=== PATIENT | male | born 1955 | race Caucasian/White ===

== ENCOUNTER 2024-11-16 23:12 | Inpatient (IN) | payer MEDICARE, OTHER ==
[~2024-11-16] VITALS: Ht 177.8 cm; Wt 68.0 kg
[~2024-11-16 23:12] MED LIST: POVI1MED TP; ZINC220C6 PO
[2024-11-17 01:14] LABS: APPEARANCE,URINE CLEAR (CLEAR); BILIRUBIN,URINE NEGATIVE (NEGATIVE); BLOOD, URINE 1+ Ery/uL (NEGATIVE); COLOR,URINE YELLOW (YELLOW); KETONES,URINE NEGATIVE (NEGATIVE); LEUKOCYTE ESTERASE ,URINE NEGATIVE (NEGATIVE); NITRITE, URINE NEGATIVE (NEGATIVE); PROTEIN,URINE 1+ mg/dl (NEGATIVE); UGLUCOSE NEGATIVE (NEGATIVE); UROBILINOGEN,URINE 0.2 EU/dL (0.2)
[2024-11-17 01:32] LABS: ADD URINE CULTURE NO; BACTERIA,URINE Few /HPF (None Seen); SQUAMOUS EPITHELIAL CELL,UR Moderate /HPF (None Seen)
[2024-11-17 02:29] LABS: BASOPHILS # (AUTO) 0.1 K/uL (0.0-0.2); BASOPHILS % (AUTO) 0.5 % (0.0-2.0); EOSINOPHILS # (AUTO) 0.4 K/uL (0.0-0.7); EOSINOPHILS % (AUTO) 1.4 % (0.0-6.0); HEMATOCRIT 27 % (39-51); HEMOGLOBIN 8.8 g/dL (13.5-17.5); LYMPHOCYTES # (AUTO) 1.8 K/uL (0.8-4.8); LYMPHOCYTES % (AUTO) 6.8 % (20.0-44.0); MEAN CORPUSCULAR HEMOGLOBIN 26 PG (26.0-33.0); MEAN CORPUSCULAR HGB CONC 33 g/dl (31.0-36.0); MEAN CORPUSCULAR VOLUME 80 fL (80-96); MONOCYTES # (AUTO) 1.6 K/uL (0.1-1.30); MONOCYTES % (AUTO) 5.9 % (2.0-12.0); NEUTROPHILS # (AUTO) 22.5 K/uL (1.8-8.9); NEUTROPHILS % (AUTO) 85.4 % (43.0-81.0); PLATELET COUNT (AUTO) 398 K/uL (150-450); RED BLOOD CELL COUNT(AUTO) 3.37 MIL/uL (4.5-6.0); RED CELL DISTRIBUTION WIDTH 17.2 % (11.5-15.0); WHITE BLOOD COUNT (AUTO) 26.4 K/uL (4.3-11.0)
[2024-11-17 02:51] LABS: INR 1.24 (0.91-1.10); PARTIAL THROMBOPLASTIN TIME 34.8 SEC (24.3-34.3)
[2024-11-17 03:05] LABS: ALBUMIN 1.9 g/dL (3.4-5.0); BILIRUBIN,DIRECT 0.1 mg/dL (0.0-0.2); BILIRUBIN,TOTAL 0.3 mg/dL (0.2-1.0); CALCIUM, SERUM 9.1 mg/dL (8.5-10.1); CREATININE 0.8 mg/dL (0.6-1.3); POTASSIUM 3.6 mmol/L (3.5-5.1); TOTAL PROTEIN, SERUM 7.3 g/dL (6.4-8.2)
[2024-11-17] MEDS ORDERED: ONDANSETRON HCL/PF 4 MG/2 ML VIAL IVP PRN (04:00)
[2024-11-17] MEDS ORDERED: Z GUARD REMEDY 4 OZ OINT TP PRN (04:00)
[2024-11-17] MEDS ORDERED: METRONIDAZOLE 500MG/ NS 100ML 500 MG in PREMIX 1 EA IV SCH (04:00)
[2024-11-17] MEDS ORDERED: MAG HYDROX/AL HYDROX/SIMETH 30 ML UDC PO PRN (04:00)
[2024-11-17] MEDS ORDERED: MAGNESIUM HYDROXIDE 30 ML UDC PO PRN ×2 (04:00→13:30)
[2024-11-17] MEDS ORDERED: CEFEPIME 1 GM in IV D5W 50 ML IV SCH (04:00)
[2024-11-17] MEDS ORDERED: ACETAMINOPHEN 325 MG TABLET PO PRN (04:00)
[2024-11-17] MEDS ORDERED: ZOLPIDEM TARTRATE 5 MG TABLET PO PRN (04:00)
[2024-11-17 05:30] VITALS: BP 142/72; TEMP 97.9; O2SAT 98
[2024-11-17] MEDS: VANCOMYCIN 1 GM /D5W 250 ML PB IV ONE (06:13)
[2024-11-17] MEDS: VANCOMYCIN 1 GM in IV NS 0.9% 250 ML IV ONE (06:20)
[2024-11-17] MEDS: METRONIDAZOLE 500MG/ NS 100ML 500 MG in PREMIX 1 EA IV SCH (07:52)
[2024-11-17 08:00] VITALS: BP 149/87; TEMP 97.9; O2SAT 100
[2024-11-17] MEDS: CEFEPIME 2 GM in IV D5W 100 ML IV SCH (08:45)
[2024-11-17] MEDS ORDERED: ALLO100T PO (09:59)
[2024-11-17] MEDS ORDERED: L. A1TAB10 PO (09:59)
[2024-11-17] MEDS ORDERED: FOLI0.8T3 PO (09:59)
[2024-11-17] MEDS ORDERED: IPRA3AMP23 IH (09:59)
[2024-11-17] MEDS ORDERED: ATOR10TA PO (09:59)
[2024-11-17] MEDS ORDERED: AMIN30LI25 PO (09:59)
[2024-11-17] MEDS ORDERED: NA P133E RC (09:59)
[2024-11-17] MEDS ORDERED: BISA10SU11 RC (09:59)
[2024-11-17] MEDS ORDERED: MIRT-90 PO (09:59)
[2024-11-17] MEDS ORDERED: METO50TA16 PO (09:59)
[2024-11-17] MEDS ORDERED: MULT-213 PO (09:59)
[2024-11-17] MEDS ORDERED: PANT40TA49 PO (09:59)
[2024-11-17] MEDS ORDERED: RIFA550T PO (09:59)
[2024-11-17] MEDS ORDERED: LOSA50TA39 PO (09:59)
[2024-11-17] MEDS ORDERED: AMOX1TAB15 PO (09:59)
[2024-11-17] MEDS ORDERED: ASCO500T10 PO (09:59)
[2024-11-17] MEDS ORDERED: LACT10SO29 PO (09:59)
[2024-11-17] MEDS ORDERED: ZINC56.713 TP (09:59)
[2024-11-17] MEDS ORDERED: ACET-73 PO (09:59)
[2024-11-17] MEDS ORDERED: HEPA50008 SQ (09:59)
[2024-11-17] MEDS ORDERED: LENV8CAP PO (09:59)
[2024-11-17] MEDS ORDERED: ISOS30TA86 PO (09:59)
[2024-11-17] MEDS ORDERED: LEVE500S9 PO (09:59)
[2024-11-17] MEDS ORDERED: PHEN32.46 PO (09:59)
[2024-11-17] MEDS ORDERED: AMLO-213 PO (09:59)
[2024-11-17] MEDS ORDERED: ASPI-1420 PO (09:59)
[2024-11-17] MEDS ORDERED: ACET325T53 PO (09:59)
[2024-11-17] MEDS ORDERED: MEGE20TA3 PO (09:59)
[2024-11-17] MEDS ORDERED: MAGN400O6 PO (09:59)
[2024-11-17] MEDS ORDERED: NA PHOS,M-B/NA PHOS,DI-BA 1 EA ENEMA RC PRN (13:30)
[2024-11-17] MEDS ORDERED: ZINC OXIDE 56.7 GM TUBE TP PRN (13:30)
[2024-11-17] MEDS ORDERED: BISACODYL SUPP (10 MG) 10 MG/SUPP.RECT SUPP.RECT RC PRN (13:30)
[2024-11-17] MEDS ORDERED: LENVATINIB XX SCH (13:30)
[2024-11-17] MEDS ORDERED: ALBUTEROL FS 2.5 MG/3 ML VIAL.NEB NEB PRN (13:30)
[2024-11-17 16:00] VITALS: BP 150/87; TEMP 99.4; O2SAT 92
[2024-11-17] MEDS: LACTULOSE 10 G/15 ML UDC (PYXIS) PO SCH (16:14)
[2024-11-17] MEDS: ACIDOPHILUS/BULGARICUS 1 EACH TAB.CHEW PO SCH (16:14)
[2024-11-17] MEDS: VANCOMYCIN 1 GM in IV D5W 250ml IV SCH (18:00)
[2024-11-17 20:00] VITALS: BP 139/83; TEMP 97.7; O2SAT 100
[2024-11-17] MEDS: HEPARIN SODIUM, PORCINE 5000 UNITS/1 ML VIAL SQ SCH (20:40)
[2024-11-17] MEDS: PHENOBARBITAL 30 MG TABLET PO SCH (20:41)
[2024-11-17] MEDS: RIFAXIMIN 550 MG TABLET PO SCH (20:41)
[2024-11-17] MEDS: LEVETIRACETAM (250 MG) 250 MG TABLET PO SCH (20:41)
[2024-11-17] MEDS: METOPROLOL TARTRATE 50 MG TABLET PO SCH (20:46)
[2024-11-17] MEDS: MIRTAZAPINE 15 MG TABLET PO SCH (21:48)
[2024-11-17] MEDS: ATORVASTATIN 10 MG TABLET PO SCH (21:48)
[2024-11-18] MEDS: IV NS 0.9% 1,000 ML IV PRN (05:47)
[2024-11-18 08:00] VITALS: BP 148/87; TEMP 97.5; O2SAT 100
[2024-11-18] MEDS: ALLOPURINOL 100 MG TABLET PO SCH (08:28)
[2024-11-18] MEDS: MULTIVIT W/MINERALS 1 TAB TABLET PO SCH (08:28)
[2024-11-18] MEDS: PANTOPRAZOLE 40 MG TABLET.DR PO SCH (08:28)
[2024-11-18] MEDS: ASCORBIC ACID 500 MG TABLET PO SCH (08:29)
[2024-11-18] MEDS: ZINC SULFATE 220 MG CAPSULE PO SCH (08:29)
[2024-11-18] MEDS: MEGESTROL ACETATE 40 MG TABLET PO SCH (08:29)
[2024-11-18] MEDS: FOLIC ACID 1 MG TABLET PO SCH (08:29)
[2024-11-18] MEDS: ASPIRIN EC 81 MG TABLET.DR PO SCH (08:29)
[2024-11-18] MEDS: AMLODIPINE BESYLATE 10 MG TABLET PO SCH (08:30)
[2024-11-18] MEDS: LOSARTAN POTASSIUM 50 MG TABLET PO SCH (08:31)
[2024-11-18] MEDS: ISOSORBIDE MONONITRATE (30MG) 30 MG TAB.SR.24H PO SCH (08:31)
[2024-11-18] MEDS: PROSOURCE / PROSTAT (PYXIS) 30 ML UDC PO SCH (08:32)
[2024-11-18 15:33] LABS: BASOPHILS # (AUTO) 0.1 K/uL (0.0-0.2); BASOPHILS % (AUTO) 0.4 % (0.0-2.0); EOSINOPHILS # (AUTO) 0.3 K/uL (0.0-0.7); EOSINOPHILS % (AUTO) 1.5 % (0.0-6.0); HEMATOCRIT 32 % (39-51); HEMOGLOBIN 10.4 g/dL (13.5-17.5); LYMPHOCYTES # (AUTO) 2.3 K/uL (0.8-4.8); LYMPHOCYTES % (AUTO) 9.8 % (20.0-44.0); MEAN CORPUSCULAR HEMOGLOBIN 26 PG (26.0-33.0); MEAN CORPUSCULAR HGB CONC 33 g/dl (31.0-36.0); MEAN CORPUSCULAR VOLUME 81 fL (80-96); MONOCYTES # (AUTO) 1.4 K/uL (0.1-1.30); NEUTROPHILS # (AUTO) 19.1 K/uL (1.8-8.9); NEUTROPHILS % (AUTO) 82.3 % (43.0-81.0); PLATELET COUNT (AUTO) 482 K/uL (150-450); RED BLOOD CELL COUNT(AUTO) 3.96 MIL/uL (4.5-6.0); RED CELL DISTRIBUTION WIDTH 17.4 % (11.5-15.0); WHITE BLOOD COUNT (AUTO) 23.2 K/uL (4.3-11.0)
[2024-11-18 15:59] LABS: ALBUMIN 2.2 g/dL (3.4-5.0); BILIRUBIN,TOTAL 0.3 mg/dL (0.2-1.0); CALCIUM, SERUM 9.3 mg/dL (8.5-10.1); CREATININE 0.9 mg/dL (0.6-1.3); MAGNESIUM 1.7 mg/dL (1.8-2.4); POTASSIUM 3.6 mmol/L (3.5-5.1); TOTAL PROTEIN, SERUM 8.3 g/dL (6.4-8.2)
[2024-11-18 16:00] VITALS: BP 114/73; TEMP 97.5; O2SAT 99
[2024-11-18 16:09] LABS: THYROID STIMULATING HORMONE 7.87 uIU/mL (0.358-3.74)
[2024-11-18 19:11] LABS: LYMPHOCYTES % (MANUAL) 15 % (16-48); MONOCYTES % (MANUAL) 5 % (0-11.0); NEUTROPHILS % (MANUAL) 80 (42-76)
[2024-11-18 19:12] LABS: ANISOCYTOSIS 1+; PLATELET ESTIMATE INCREASED; TARGET CELLS 1+
[2024-11-18 19:15] LABS: ERYTHROCYTE SEDIMENTATION RATE 113 MM/HR (0-20)
[2024-11-18 20:00] VITALS: BP 139/72; TEMP 97.3; O2SAT 100
[2024-11-19 02:24] VITALS: BP 139/72; TEMP 97.3; O2SAT 100
[2024-11-19 02:40] VITALS: BP 139/72; TEMP 97.3; O2SAT 100
[2024-11-19] MEDS: METRONIDAZOLE 500 MG TABLET PO SCH (07:14)
[2024-11-19] MEDS ORDERED: VITAMINS A AND D 56.7 GM TUBE TP PRN (09:30)
[2024-11-19] MEDS: VANCOMYCIN 750 MG in IV D5W 250 ML IV SCH (09:46)
[2024-11-19 15:38] LABS: BASOPHILS # (AUTO) 0.1 K/uL (0.0-0.2); BASOPHILS % (AUTO) 0.4 % (0.0-2.0); EOSINOPHILS # (AUTO) 0.3 K/uL (0.0-0.7); EOSINOPHILS % (AUTO) 1.3 % (0.0-6.0); HEMATOCRIT 28 % (39-51); LYMPHOCYTES % (AUTO) 8.5 % (20.0-44.0); MEAN CORPUSCULAR HEMOGLOBIN 26 PG (26.0-33.0); MEAN CORPUSCULAR HGB CONC 33 g/dl (31.0-36.0); MEAN CORPUSCULAR VOLUME 81 fL (80-96); MONOCYTES # (AUTO) 1.7 K/uL (0.1-1.30); MONOCYTES % (AUTO) 7.1 % (2.0-12.0); NEUTROPHILS # (AUTO) 19.8 K/uL (1.8-8.9); NEUTROPHILS % (AUTO) 82.7 % (43.0-81.0); PLATELET COUNT (AUTO) 445 K/uL (150-450); RED BLOOD CELL COUNT(AUTO) 3.43 MIL/uL (4.5-6.0); RED CELL DISTRIBUTION WIDTH 17.4 % (11.5-15.0)
[2024-11-19 16:36] LABS: CALCIUM, SERUM 9.1 mg/dL (8.5-10.1); CREATININE 1.2 mg/dL (0.6-1.3); POTASSIUM 3.5 mmol/L (3.5-5.1)
[2024-11-19 17:38] LABS: BAND % (MANUAL) 2 % (0.0-5.0); EOSINOPHILS % (MANUAL) 1 % (0-4); LYMPHOCYTES % (MANUAL) 9 % (16-48); MONOCYTES % (MANUAL) 3 % (0-11.0); NEUTROPHILS % (MANUAL) 85 (42-76); PLATELET ESTIMATE ADEQU
[2024-11-19 17:39] LABS: ANISOCYTOSIS 1+; TARGET CELLS 1+
[2024-11-19 17:40] LABS: ROULEAUX 1+
[2024-11-19 20:00] VITALS: BP 143/82; TEMP 98.2; O2SAT 99
[2024-11-20] VITALS (7 sets, daily range): BP systolic 126–158; BP diastolic 61–91; TEMP 97.5–98.2; O2SAT 96–100
[2024-11-20 09:08] LABS: FOLIC ACID 11.3 ng/mL (>3.0)
[2024-11-20 13:34] LABS: BASOPHILS # (AUTO) 0.1 K/uL (0.0-0.2); BASOPHILS % (AUTO) 0.6 % (0.0-2.0); EOSINOPHILS # (AUTO) 0.2 K/uL (0.0-0.7); EOSINOPHILS % (AUTO) 1.2 % (0.0-6.0); HEMATOCRIT 28 % (39-51); HEMOGLOBIN 8.9 g/dL (13.5-17.5); LYMPHOCYTES # (AUTO) 1.7 K/uL (0.8-4.8); LYMPHOCYTES % (AUTO) 8.8 % (20.0-44.0); MEAN CORPUSCULAR HEMOGLOBIN 26 PG (26.0-33.0); MEAN CORPUSCULAR HGB CONC 32 g/dl (31.0-36.0); MEAN CORPUSCULAR VOLUME 82 fL (80-96); MONOCYTES # (AUTO) 1.4 K/uL (0.1-1.30); MONOCYTES % (AUTO) 7.2 % (2.0-12.0); NEUTROPHILS # (AUTO) 15.7 K/uL (1.8-8.9); NEUTROPHILS % (AUTO) 82.2 % (43.0-81.0); PLATELET COUNT (AUTO) 372 K/uL (150-450); RED BLOOD CELL COUNT(AUTO) 3.37 MIL/uL (4.5-6.0); RED CELL DISTRIBUTION WIDTH 17.6 % (11.5-15.0); WHITE BLOOD COUNT (AUTO) 19.1 K/uL (4.3-11.0)
[2024-11-20 13:37] LABS: CALCIUM, SERUM 8.6 mg/dL (8.5-10.1); CREATININE 1.1 mg/dL (0.6-1.3); POTASSIUM 3.2 mmol/L (3.5-5.1)
[2024-11-20] MEDS: POTASSIUM CHLORIDE 20 MEQ POWDER PACKET PO SCH (18:09)
[2024-11-21 07:45] LABS: BASOPHILS # (AUTO) 0.1 K/uL (0.0-0.2); BASOPHILS % (AUTO) 0.3 % (0.0-2.0); EOSINOPHILS # (AUTO) 0.3 K/uL (0.0-0.7); EOSINOPHILS % (AUTO) 1.3 % (0.0-6.0); HEMATOCRIT 23 % (39-51); HEMOGLOBIN 7.8 g/dL (13.5-17.5); LYMPHOCYTES % (AUTO) 8.6 % (20.0-44.0); MEAN CORPUSCULAR HEMOGLOBIN 27 PG (26.0-33.0); MEAN CORPUSCULAR HGB CONC 33 g/dl (31.0-36.0); MEAN CORPUSCULAR VOLUME 81 fL (80-96); MONOCYTES # (AUTO) 1.7 K/uL (0.1-1.30); MONOCYTES % (AUTO) 7.3 % (2.0-12.0); NEUTROPHILS # (AUTO) 18.7 K/uL (1.8-8.9); NEUTROPHILS % (AUTO) 82.5 % (43.0-81.0); PLATELET COUNT (AUTO) 381 K/uL (150-450); RED BLOOD CELL COUNT(AUTO) 2.89 MIL/uL (4.5-6.0); WHITE BLOOD COUNT (AUTO) 22.7 K/uL (4.3-11.0)
[2024-11-21 08:00] VITALS: BP_SYST 118; BP_SYST 142; BP_DIAS 56; BP_DIAS 86; TEMP 97.7; TEMP 98.4; O2SAT 100; O2SAT 94
[2024-11-21 08:12] LABS: CALCIUM, SERUM 8.5 mg/dL (8.5-10.1); CREATININE 1.1 mg/dL (0.6-1.3); POTASSIUM 3.5 mmol/L (3.5-5.1)
[2024-11-21 09:34] VITALS: BP 142/86
[2024-11-21 10:00] LABS: LYMPHOCYTES % (MANUAL) 6 % (16-48); MONOCYTES % (MANUAL) 5 % (0-11.0); NEUTROPHILS % (MANUAL) 89 (42-76)
[2024-11-21 10:01] LABS: ANISOCYTOSIS 1+; PLATELET ESTIMATE ADEQUATE; TARGET CELLS 1+
== END 2024-11-21 17:14 | DRG 177 ==
LOC: ER 23:19 → MED 11-17 04:56
PROVIDERS: ADMIT Nurse Practitioner Acute Care
DX: J15.69 Pneumonia due to other Gram-negative bacteria (principal); G93.41 Metabolic encephalopathy; F02.83 Dementia in other diseases classified elsewhere, unspecified severity, with mood disturbance; C22.0 Liver cell carcinoma; J44.0 Chronic obstructive pulmonary disease with (acute) lower respiratory infection; G30.9 Alzheimer's disease, unspecified; G40.909 Epilepsy, unspecified, not intractable, without status epilepticus; Z20.822 Contact with and (suspected) exposure to COVID-19; E78.5 Hyperlipidemia, unspecified; I10 Essential (primary) hypertension; F32.A Depression, unspecified; K21.9 Gastro-esophageal reflux disease without esophagitis; Z79.899 Other long term (current) drug therapy; M89.8X9 Other specified disorders of bone, unspecified site; M10.9 Gout, unspecified; L89.626 Pressure-induced deep tissue damage of left heel; L89.616 Pressure-induced deep tissue damage of right heel; L85.3 Xerosis cutis; D64.9 Anemia, unspecified; Y95 Nosocomial condition; Z86.73 Personal history of transient ischemic attack (TIA), and cerebral infarction without residual deficits; K74.60 Unspecified cirrhosis of liver; Z79.01 Long term (current) use of anticoagulants; Z79.82 Long term (current) use of aspirin
CPT/HCPCS: 36415; 70450-TC; 71045-TC; 71250-TC; 80048-TC; 80053-TC; 80076-TC; 80184; 80202-TC; 81001; 82140-TC; 82607-TC; 83735-TC; 83921; 84100-TC; 84425; 84439-TC; 84443-TC; 85025-TC; 85652-TC; 85730-TC; 86140-TC; 87081-TC; 97110-TC; 97112-TC; 97530-TC; A4216; A4223; G0378; J0692; J1644; J3370; J3371; J7030; J7050; J7060